=== PATIENT | male | born 1995 | race Caucasian/White ===

== ENCOUNTER 2019-03-17 12:50 | Emergency (ER) | payer SELFPAY ==
[~2019-03-17] VITALS: Ht 177.8 cm; Wt 99.8 kg
[2019-03-17 12:51] VITALS: BP_SYST 149
--- NOTE | 2019-03-17 12:51 | NUR ---
Ambulatory to [facility] bed. Dr. Powers notified.
--- NOTE | 2019-03-17 12:58 | NUR ---
Moved to [facility], placed on library monitor
--- NOTE | 2019-03-17 13:04 | NUR ---
ER Dr. Powers at bedside examining patient.
--- NOTE | 2019-03-17 13:05 | NUR ---
Patient ambulatory to ED a/o x 4 with c/o bug bite to lateral left ankle. Site marked. Increase in erythema and warmth to site prompting ED visit. New onset of throat tightness and respiratory distress. SpO2 >97% on RA. No audible stridor. -CP -N/V -Diaphoresis.
[2019-03-17] MEDS ORDERED: NACL 0.9% 1,000 ML IV ONE (13:15)
[2019-03-17] MEDS ORDERED: methylPREDNISolone SOD SUCC/PF 62.5 MG/ML VIAL IVP ONE (13:15)
[2019-03-17] MEDS ORDERED: DIPHENHYDRAMINE INJ 50 MG/ML VIAL IVP ONE (13:15)
--- NOTE | 2019-03-17 13:26 | NUR ---
Medication administered. Pt tolerated well. No adverse reactions noted.
[2019-03-17 15:00] VITALS: BP_SYST 141
--- NOTE | 2019-03-17 15:00 | NUR ---
Patient given written and verbal discharge instructions and verbalizes understanding. ER MD discussed with patient the results and treatment provided. Patient in stable condition. ID arm band removed. IV catheter removed intact and dressing applied, no active bleeding. Rx of benadryl, prednisone, motrin and bactrim given. Patient educated on pain management and to follow up with PMD. Pain Scale 3/10 tolerable for patient. Opportunity for questions provided and answered. Medication side effect fact sheet provided.
== END 2019-03-17 15:00 | disposition home or self-care (01) ==
LOC: SED 12:50
DX: S90.562A Insect bite (nonvenomous), left ankle, initial encounter (principal); L03.116 Cellulitis of left lower limb; W57.XXXA Bitten or stung by nonvenomous insect and other nonvenomous arthropods, initial encounter; Y93.89 Activity, other specified; Y92.89 Other specified places as the place of occurrence of the external cause; Y99.8 Other external cause status
CPT/HCPCS: 96374; 96375; 99283; J1200; J2930; J7030